=== PATIENT | male | born 1975 | race American Indian/Alaskan Native ===

== ENCOUNTER 2019-10-16 21:21 | Emergency (ER) | payer SELFPAY ==
--- NOTE | 2019-10-17 00:54 | Emergency Department Report ---
- General Chief Complaint: Upper Respiratory Infection Stated Complaint: CHEST PAIN ,TEAGUE,FEVER Time Seen by Provider: 10/17/19 00:15 Source: patient Mode of arrival: Ambulatory Limitations: No Limitations - History of Present Illness Initial Comments: 44-year-old male with a history of tobacco use and no other significant past medical history presents to the ER today complaining of productive cough with yellow sputum since . He reports associated nasal congestion and rhinorrhea. He reports chest pain mainly when coughing. He also reports fever, but he doesn't recall how high his fever has been. He reports associated headache and dizziness. He states that he has been taking Tylenol flu, as well as TheraFlu and Mucinex without much relief of his symptoms. 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 He reports no wheezing, or difficulty breathing or any other symptoms at this time. MD Complaint: cough, rhinorrhea, nasal congestion -: days(s) (4) - Related Data Previous Rx's Medication Instructions Recorded Last Taken Type Benzonatate [Tessalon Perles] 100 mg PO Q8HR PRN #30 capsule 10/17/19 Unknown Rx Cetirizine HCl [Zyrtec 10mg tab] 10 mg PO DAILY #30 tablet 10/17/19 Unknown Rx Fluticasone [Flonase] 2 spray NS QDAY #1 bottle 10/17/19 Unknown Rx Meloxicam [Mobic] 7.5 mg PO BID PRN #20 tablet 10/17/19 Unknown Rx Allergies Allergy/AdvReac Type Severity Reaction Status Date / Time No Known Allergies Allergy Verified 10/16/19 21:24 ED Review of Systems ROS: Stated complaint: CHEST PAIN ,TEAGUE,FEVER Other details as noted in HPI Comment: All other systems reviewed and negative Constitutional: fever. denies: chills Respiratory: cough. denies: shortness of breath, SOB at rest, wheezing Cardiovascular: chest pain (mainly with cough) Gastrointestinal: denies: abdominal pain, nausea, vomiting, diarrhea Genitourinary: denies: urgency, dysuria, frequency, hematuria, discharge Neurological: vertigo. denies: headache, weakness, numbness, paresthesias, confusion Psychiatric: denies: anxiety, depression ED Past Medical Hx - Medications Home Medications: Home Medications Medication Instructions Recorded Confirmed Last Taken Type Benzonatate [Tessalon Perles] 100 mg PO Q8HR PRN #30 capsule 10/17/19 Unknown Rx Cetirizine HCl [Zyrtec 10mg tab] 10 mg PO DAILY #30 tablet 10/17/19 Unknown Rx Fluticasone [Flonase] 2 spray NS QDAY #1 bottle 10/17/19 Unknown Rx Meloxicam [Mobic] 7.5 mg PO BID PRN #20 tablet 10/17/19 Unknown Rx ED Physical Exam - General Limitations: No Limitations General appearance: alert, in no apparent distress - Head Head exam: Present: atraumatic, normocephalic, normal inspection - Eye Eye exam: Present: normal appearance Pupils: Present: normal accommodation - ENT ENT exam: Present: normal exam, normal orophraynx, mucous membranes moist - Expanded ENT Exam Expanded TM/Canal exam: Effusion: Right TM, Left TM - Neck Neck exam: Present: normal inspection, full ROM, lymphadenopathy. Absent: meningismus - Respiratory Respiratory exam: Present: normal lung sounds bilaterally. Absent: respiratory distress - Cardiovascular Cardiovascular Exam: Present: regular rate, normal rhythm, normal heart sounds - GI/Abdominal GI/Abdominal exam: Present: soft. Absent: distended - Neurological Exam Neurological exam: Present: alert, oriented X3, CN II-XII intact, normal gait - Psychiatric Psychiatric exam: Present: normal affect, normal mood - Skin Skin exam: Present: intact ED Medical Decision Making - Radiology Data Radiology results: report reviewed Patient: DANIKA RENTERIA MR#: [id number] : 1975 Acct:[id number] Age/Sex: 44 / M ADM Date: 10/16/19 Loc: ED Attending Dr: Ordering Physician: BREANNE WASSERMAN Date of Service: 10/17/19 Procedure(s): XR chest routine 2V Accession Number(s): [id number] cc: BREANNE WASSERMAN Fluoro Time In Minutes: CHEST PA AND LATERAL VIEWS INDICATION: Cough. COMPARISON: None. FINDINGS: Support devices: None. Heart: Within normal limits. Lungs/Pleura: No acute pulmonary or pleural findings. IMPRESSION: 1. No acute findings. Signer Name: Yuri Whyte MD Signed: 10/17/2019 1:21 AM Workstation Name: [email or web address] Transcribed By: VIMAL Dictated By: Yuri Whyte MD Electronically Authenticated By: Yuri Whyte MD Signed Date/Time: 10/17/19120 DD/ 0 TD/TT: - Medical Decision Making 44 year old male presents to ED c/o URI/flu like symptoms x 4 days including cp with cough. CXR reviewed and nothing acute. Pt is afebrile, well appearing and not toxic and he is not in any pain nor respiratory distress. His mental status is normal and he is neurologically intact. Patient history, exam, diagnostic testing and current condition does not suggest any serious infectious process such as meningitis severe pneumonia, retropharyngeal abscess, epiglottitis, sepsis or other serious bacterial infection at this time requiring further testing, consultation or admission. Condition condition is stable and appropriate for discharge. Discussed suspected diagnosis and treatment plan. Recommend close follow-up with PCP, but if anything worsens to return to the ER. Critical care attestation.: If time is entered above; I have spent that time in minutes in the direct care of this critically ill patient, excluding procedure time. ED Disposition Clinical Impression: URI with cough and congestion, Viral syndrome Disposition: TO HOME OR SELFCARE Is pt being admited?: No Does the pt Need Aspirin: No Condition: Stable Instructions: Viral Syndrome (ED), Upper Respiratory Infection (ED) Prescriptions: Fluticasone [Flonase] 2 spray NS QDAY #1 bottle Meloxicam [Mobic] 7.5 mg PO BID PRN #20 tablet PRN Reason: Pain, Moderate (4-6) Benzonatate [Tessalon Perles] 100 mg PO Q8HR PRN #30 capsule PRN Reason: Cough Cetirizine HCl [Zyrtec 10mg tab] 10 mg PO DAILY #30 tablet Referrals: PRIMARY CARE, [Primary Care Provider] - 3-5 Days Forms: Work/School Release Form(ED) Time of Disposition: 01:52
--- NOTE | 2019-10-17 01:25 | XRay Report ---
CHEST PA AND LATERAL VIEWS INDICATION: Cough. COMPARISON: None. FINDINGS: Support devices: None. Heart: Within normal limits. Lungs/Pleura: No acute pulmonary or pleural findings. IMPRESSION: 1. No acute findings. Signer Name: Yuri Whyte MD Signed: 10/17/2019 1:21 AM Workstation Name: [id number]
[2019-10-17 02:04] VITALS: BP 125/87
== END 2019-10-17 02:00 | disposition home or self-care (01) ==
LOC: ED 21:21
DX: J06.9 Acute upper respiratory infection, unspecified (principal); B34.9 Viral infection, unspecified; Z79.899 Other long term (current) drug therapy
CPT/HCPCS: 71046

== ENCOUNTER 2021-06-12 13:38 | Emergency (ER) | payer OTHER ==
[2021-06-12 14:05] VITALS: BP 125/86
--- NOTE | 2021-06-12 14:52 | Emergency Department Report ---
ED Fall HPI - General Chief Complaint: Fall Stated Complaint: FALL/KNEE/BACK PAIN Time Seen by Provider: 06/12/21 14:00 Source: patient Mode of arrival: Ambulatory - History of Present Illness Initial Comments: Patient is a 45-year-old male presents emergency room complaints of a fall that occurred 4 days ago. Patient states that he was cleaning his gutters from his roof and slipped and fell. He states he has been having some mild right knee pain since then. He states initially he was having some back pain but that has completely resolved. He states he called a couple days out of work and states that he needed an excuse to return back to work as he called out. He denies hitting his head, loss of consciousness, vomiting, vision changes, numbness, weakness, bowel or bladder incontinence, any other injury. Patient is ambulatory with no difficulty. He denies any past medical history or allergies to medications. - Related Data Previous Rx's Medication Instructions Recorded Last Taken Type Benzonatate [Tessalon Perles] 100 mg PO Q8HR PRN #30 capsule 10/17/19 Unknown Rx Cetirizine HCl [Zyrtec 10mg tab] 10 mg PO DAILY #30 tablet 10/17/19 Unknown Rx Fluticasone [Flonase] 2 spray NS QDAY #1 bottle 10/17/19 Unknown Rx Meloxicam [Mobic] 7.5 mg PO BID PRN #20 tablet 10/17/19 Unknown Rx Allergies Allergy/AdvReac Type Severity Reaction Status Date / Time No Known Allergies Allergy Verified 10/16/19 21:24 ED Review of Systems ROS: Stated complaint: FALL/KNEE/BACK PAIN Other details as noted in HPI Comment: All other systems reviewed and negative ED Past Medical Hx - Past Medical History Previous Medical History?: No - Surgical History Past Surgical History?: No - Social History Smoking Status: Current Every Day Smoker Substance Use Type: Alcohol, Marijuana - Medications Home Medications: Home Medications Medication Instructions Recorded Confirmed Last Taken Type Benzonatate [Tessalon Perles] 100 mg PO Q8HR PRN #30 capsule 10/17/19 Unknown Rx Cetirizine HCl [Zyrtec 10mg tab] 10 mg PO DAILY #30 tablet 10/17/19 Unknown Rx Fluticasone [Flonase] 2 spray NS QDAY #1 bottle 10/17/19 Unknown Rx Meloxicam [Mobic] 7.5 mg PO BID PRN #20 tablet 10/17/19 Unknown Rx ED Physical Exam - General Limitations: No Limitations General appearance: alert, in no apparent distress - Head Head exam: Present: atraumatic, normocephalic - Eye Eye exam: Present: normal appearance, EOMI. Absent: periorbital swelling, periorbital tenderness - ENT ENT exam: Present: mucous membranes moist - Neck Neck exam: Present: normal inspection, full ROM. Absent: tenderness, meningismus - Respiratory Respiratory exam: Present: normal lung sounds bilaterally. Absent: respiratory distress, wheezes, rales, rhonchi, stridor, chest wall tenderness, accessory muscle use, decreased breath sounds, prolonged expiratory - Cardiovascular Cardiovascular Exam: Present: regular rate, normal rhythm, normal heart sounds. Absent: systolic murmur, diastolic murmur, rubs, gallop - Extremities Exam Extremities exam: Present: other (mild right lateral knee ttp, no edema, no ecchymosis, FROM of the RLE, no deformity, neurovascularly intact) - Back Exam Back exam: Present: normal inspection, full ROM. Absent: paraspinal tenderness, vertebral tenderness - Neurological Exam Neurological exam: Present: alert, oriented X3, CN II-XII intact, normal gait. Absent: motor sensory deficit - Psychiatric Psychiatric exam: Present: normal affect, normal mood - Skin Skin exam: Present: warm, dry, intact ED Course Vital Signs 06/12/21 14:00 Temperature 99.1 F Pulse Rate 88 Respiratory 18 Rate Blood Pressure 125/86 O2 Sat by Pulse 98 Oximetry ED Medical Decision Making - Radiology Data Radiology results: report reviewed Ordering Physician: RAJESH FARIAS Date of Service: 06/12/21 Procedure(s): XR knee 3V RT Accession Number(s): [id number] cc: RAJESH FARIAS Fluoro Time In Minutes: RIGHT KNEE 3 VIEWS INDICATION / CLINICAL INFORMATION: fall off roof, right knee pain COMPARISON: None available. FINDINGS: BONES / JOINT(S): No acute fracture or subluxation. No significant arthritis. SOFT TISSUES: No significant abnormality. ADDITIONAL FINDINGS: None. Signer Name: Santi Krause MD Signed: 06/12/2021 2:54 PM Workstation Name: [email or web address] Transcribed By: ES Dictated By: Santi Krause MD Electronically Authenticated By: Santi Krause MD Signed Date/Time: 06/12/211453 DD/ 52 TD/TT: - Medical Decision Making Patient is a 45-year-old male presents emergency room complaints of a fall that occurred 4 days ago. Patient states that he was cleaning his gutters from his roof and slipped and fell. He states he has been having some mild right knee pain since then. He states initially he was having some back pain but that has completely resolved. He states he called a couple days out of work and states that he needed an excuse to return back to work as he called out. He denies hitting his head, loss of consciousness, vomiting, vision changes, numbness, weakness, bowel or bladder incontinence, any other injury. Patient is ambulatory with no difficulty. He denies any past medical history or allergies to medications. Vitals are normal. On exam:mild right lateral knee ttp, no edema, no ecchymosis, FROM of the RLE, no deformity, neurovascularly intact, no midline or paraspinal C-spine, T-spine, L-spine tenderness palpation, no step- offs, no deformities, no focal neuro deficits. X-ray right knee: BONES / JOINT(S): No acute fracture or subluxation. No significant arthritis. SOFT TISSUES: No significant abnormality. ADDITIONAL FINDINGS: None. Discussed all results with patient. Advised patient May alternate Tylenol or ibuprofen as needed for any discomfort. May ice for 15 minutes at a time. Follow-up with orthopedic doctor if symptoms are not improving. Return to emergency room for any new or worsening symptoms. Critical care attestation.: If time is entered above; I have spent that time in minutes in the direct care of this critically ill patient, excluding procedure time. ED Disposition Clinical Impression: Fall Qualifiers: Encounter type: initial encounter Qualified Code(s): W19.XXXA - Unspecified fall, initial encounter Right knee pain Qualifiers: Chronicity: acute Qualified Code(s): M25.561 - Pain in right knee Disposition: 01 HOME / SELF CARE / HOMELESS Is pt being admited?: No Does the pt Need Aspirin: No Condition: Stable Instructions: Acute Knee Pain, Adult Additional Instructions: May alternate Tylenol or ibuprofen as needed for any discomfort. May ice for 15 minutes at a time. Follow-up with orthopedic doctor if symptoms are not improving. Return to emergency room for any new or worsening symptoms. Referrals: RAULITO JIMENEZ MD [Staff Physician] - as needed Forms: Work/School Release Form(ED) Time of Disposition: 15:00 Print Language: INDONESIAN
--- NOTE | 2021-06-12 14:58 | XRay Report ---
RIGHT KNEE 3 VIEWS INDICATION / CLINICAL INFORMATION: fall off roof, right knee pain COMPARISON: None available. FINDINGS: BONES / JOINT(S): No acute fracture or subluxation. No significant arthritis. SOFT TISSUES: No significant abnormality. ADDITIONAL FINDINGS: None. Signer Name: Santi Krause MD Signed: 06/12/2021 2:54 PM Workstation Name: [id number]
== END 2021-06-12 15:25 | disposition home or self-care (01) ==
LOC: ED 13:38
DX: M25.561 Pain in right knee (principal); F17.200 Nicotine dependence, unspecified, uncomplicated; F12.90 Cannabis use, unspecified, uncomplicated; Z72.89 Other problems related to lifestyle; Z79.899 Other long term (current) drug therapy; W18.39XA Other fall on same level, initial encounter; Y93.89 Activity, other specified; Y92.89 Other specified places as the place of occurrence of the external cause; Y99.8 Other external cause status
CPT/HCPCS: 99283